=== PATIENT | male | born 1970 | race African-American/Black ===

== ENCOUNTER 2023-10-19 13:48 | Emergency (ER) | payer OTHER ==
[2023-10-19 14:20] VITALS: BP 130/83; PULSE 78; RESP 16; TEMP 98; BMI 25.2
== END 2023-10-19 14:41 | disposition home or self-care (01) ==
LOC: FER 13:48
PROC: 0H9KXZZ Drainage of Right Lower Leg Skin, External Approach (ICD-10-PCS; principal; 2023-10-19)
DX: M71.061 Abscess of bursa, right knee (principal)
CPT/HCPCS: 99282-25